=== PATIENT | male | born 1945 | race Hispanic/Latino ===

== ENCOUNTER → 2021-06-30 | Outpatient (CLI) | payer OTHER, MEDICARE ==
[~2021-06-30] MED LIST: AEC81 PO; CLOP75TA32 PO; GLYB1TAB30 PO; IOHEXOL-350 75 ML VIAL IV ONE; MECL-226 PO; METO-391 PO; NAPR-1023 PO; OMEP20CA12 PO; ROSU40 PO; VALS40TA4 PO
== END | disposition home or self-care (01) ==
LOC: RAH 08:51 → DAH 08:51
PROVIDERS: ATTEND Internal Medicine Cardiovascular Disease
DX: I65.23 Occlusion and stenosis of bilateral carotid arteries (principal)
CPT/HCPCS: 70498; Q9967

== ENCOUNTER 2021-07-23 12:30 | Inpatient (IN) | payer OTHER, MEDICARE ==
[~2021-07-23] VITALS: Ht 162.6 cm; Wt 60.5 kg
[~2021-07-23 12:30] MED LIST changes: -IOHEXOL-350 75 ML VIAL IV ONE
[2021-08-26 09:50] LABS: BASOPHILS % (AUTO) 0.8 % (0.0-5.0); EOSINOPHILS % (AUTO) 2.1 % (0.0-8.0); HEMATOCRIT 36.7 % (42-54); LYMPHOCYTES % (AUTO) 22.4 % (21.0-51.0); MEAN CORPUSCULAR HEMOGLOBIN 30.3 pg (27.0-33.0); MEAN CORPUSCULAR HGB CONC 31.3 g/dL (32.0-36.0); MEAN CORPUSCULAR VOLUME 96.6 fL (79-99); MONOCYTES % (AUTO) 4.9 % (3.0-13.0); NEUTROPHILS % (AUTO) 69.3 % (40.0-77.0); PLATELET COUNT (AUTO) 169 K/uL (130-400); RED CELL DISTRIBUTION WIDTH 15.2 % (11.0-15.5); WHITE BLOOD COUNT (AUTO) 7.9 K/uL (4.8-10.8)
[2021-08-26 09:55] LABS: APPEARANCE,URINE Clear (CLEAR); BILIRUBIN,URINE Negative (NEGATIVE); COLOR,URINE Yellow (YELLOW); GLUCOSE, URINE (UA) Negative (NEGATIVE); KETONES,URINE Negative (NEGATIVE); LEUKOCYTE ESTERASE ,URINE Negative (NEGATIVE); NITRATE,URINE Negative (NEGATIVE); OCCULT BLOOD,URINE Negative (NEGATIVE); PROTEIN,URINE Negative (NEGATIVE)
[2021-08-26 09:57] LABS: CREATININE 2.6 mg/dL (0.5-1.5); POTASSIUM 4.7 mmol/L (3.5-5.1)
[2021-08-26 09:59] LABS: INR 1.23 (0.85-1.15); PROTHROMBIN TIME 13.2 SEC (9.6-11.6)
[2021-08-26 10:00] LABS: PARTIAL THROMBOPLASTIN TIME 32.3 SEC (26.3-35.5)
[2021-08-27 13:42] VITALS: BP 106/53
[2021-08-30] VITALS (54 sets, daily range): BP systolic 74–288; BP diastolic 34–298
[2021-08-30] MEDS ORDERED: 0.9%NACL 1000ML 1,000 ML IV ONE (05:48)
[2021-08-30] MEDS ORDERED: TAMS-1 PO (06:28)
[2021-08-30] MEDS ORDERED: ALLO300T2 PO (06:28)
[2021-08-30] MEDS ORDERED: ACET650T24 PO (06:28)
[2021-08-30] MEDS ORDERED: FURO40TA5 PO (06:28)
[2021-08-30] MEDS ORDERED: GABA-529 PO (06:28)
[2021-08-30] MEDS ORDERED: FOLI1TAB61 PO (06:28)
[2021-08-30] MEDS ORDERED: ISOS30TA92 PO (06:28)
[2021-08-30] MEDS ORDERED: FERR325T22 PO (06:28)
[2021-08-30] MEDS ORDERED: PANT20TA18 PO (06:28)
[2021-08-30] MEDS ORDERED: GLIP1TAB6 PO (06:28)
[2021-08-30] MEDS ORDERED: TELM40TA8 PO (06:29)
[2021-08-30] MEDS ORDERED: LIDOCAINE PF 100MG/5ML (2%) SYRINGE 5ML ONE ×2 (06:44→10:00)
[2021-08-30] MEDS ORDERED: PROPOFOL 10 MG/ML 20ML VIAL IV ONE ×2 (06:44→10:00)
[2021-08-30] MEDS ORDERED: FENTANYL CITRATE PF 50 MCG/1 ML 2ML VIAL ONE ×4 (06:44→10:01)
[2021-08-30] MEDS ORDERED: MIDAZOLAM HCL 1 MG/ML 2ML VIAL ONE ×2 (06:44→10:09)
[2021-08-30] MEDS ORDERED: SODIUM BICARB 50MEQ 50ML VIAL 50 ML ONE (09:52)
[2021-08-30] MEDS ORDERED: CEFAZOLIN SODIUM 1 GM VIAL ONE ×2 (09:52→10:09)
[2021-08-30] MEDS ORDERED: NITROGLYCERIN 50MG VIAL ONE (09:53)
[2021-08-30] MEDS ORDERED: IOHEXOL 350 MG/ML 100ML INFUS..BTL IV ONE (09:53)
[2021-08-30] MEDS ORDERED: LIDOCAINE HCL 400MG/20ML VIAL ONE (09:53)
[2021-08-30] MEDS ORDERED: ROCURONIUM 10MG/1ML SYR 10 MG/ML ML ONE (10:00)
[2021-08-30] MEDS ORDERED: ONDANSETRON 4MG INJ ONE (10:00)
[2021-08-30] MEDS ORDERED: NOREPINEPHRINE BITARTRATE 1 MG/1 ML ML IV ONE (10:19)
[2021-08-30] MEDS ORDERED: HEPARIN 10,000 UNIT/10ML (1,000 UNIT/ML) VIAL ONE (10:48)
[2021-08-30] MEDS ORDERED: ATROPINE 1MG SYG IVP ONE (11:10)
[2021-08-30] MEDS ORDERED: ROCURONIUM BROMIDE 10MG/1ML 5ML VL ONE (11:13)
[2021-08-30] MEDS ORDERED: DEXTROSE 50%-WATER 50 ML DISP.SYRIN IV PRN (12:00)
[2021-08-30] MEDS ORDERED: PHARMACY COMMUNICATION MISC SCH (12:00)
[2021-08-30] MEDS ORDERED: 0.9%NACL 1000ML 1,000 ML IV SCH (12:00)
[2021-08-30] MEDS ORDERED: ACETAMINOPHEN 650 MG PO PRN (12:00)
[2021-08-30] MEDS ORDERED: NEOSTIGMINE 5MG/5ML SYR IV ONE (12:03)
[2021-08-30] MEDS ORDERED: GLYCOPYRROLATE 0.2 MG/ML 5 ML VIAL ONE (12:04)
[2021-08-30] MEDS ORDERED: NOREPINEPHRIN 4MG/NS 250ML 250 ML IV SCH (13:00)
[2021-08-30] MEDS ORDERED: NITROGLYCERIN 50MG/D5W 250ML 1 BOT IV PRN (13:00)
[2021-08-30] MEDS: INSULIN HUMULIN R 100 UNIT/ML 3ML SQ SCH ×2 (16:30→20:52)
[2021-08-30] MEDS: ATORVASTATIN 40 MG TABLET PO SCH (20:40)
[2021-08-30] MEDS: METFORMIN PO SCH (21:28)
[2021-08-30] MEDS: GLIPIZIDE PO SCH (21:28)
[2021-08-31] VITALS (91 sets, daily range): BP systolic 55–134; BP diastolic 26–64
[2021-08-31 03:45] LABS: HEMATOCRIT 30.3 % (42-54); MEAN CORPUSCULAR HEMOGLOBIN 30.2 pg (27.0-33.0); MEAN CORPUSCULAR HGB CONC 31.7 g/dL (32.0-36.0); MEAN CORPUSCULAR VOLUME 95.3 fL (79-99); RED BLOOD CELL COUNT(AUTO) 3.18 MIL/uL (4.50-6.20); RED CELL DISTRIBUTION WIDTH 15.1 % (11.0-15.5); WHITE BLOOD COUNT (AUTO) 9.2 K/uL (4.8-10.8)
[2021-08-31 03:52] LABS: CREATININE 2.3 mg/dL (0.5-1.5); POTASSIUM 3.7 mmol/L (3.5-5.1)
[2021-08-31] MEDS: CEFAZOLIN SODIUM 1 GM VIAL IVP SCH (05:14)
[2021-08-31] MEDS: INSULIN HUMULIN R 100 UNIT/ML 3ML SQ SCH ×4 (05:45→20:24)
[2021-08-31] MEDS: Vitamin B Complex/Vit C/Folic Acid PO SCH (08:11)
[2021-08-31] MEDS: PANTOPRAZOLE 40 MG TAB DR PO SCH (08:11)
[2021-08-31] MEDS: FERROUS SULFATE 325 MG TABLET.DR PO SCH (08:11)
[2021-08-31] MEDS: ASPIRIN 81 MG EC TAB PO SCH (08:11)
[2021-08-31] MEDS: CLOPIDOGREL 75MG TAB PO SCH (08:12)
[2021-08-31] MEDS: FUROSEMIDE 40 MG TABLET PO SCH (08:12)
[2021-08-31] MEDS: GABAPENTIN 100 MG CAPSULE PO SCH (08:12)
[2021-08-31] MEDS: ISOSORBIDE MONO 30MG SR TAB PO SCH (08:17)
[2021-08-31] MEDS: LOSARTAN 50 MG TABLET PO SCH (08:17)
[2021-08-31] MEDS: TAMSULOSIN HCL 0.4 MG CAP.ER.24H PO SCH (08:17)
[2021-08-31] MEDS: GLIPIZIDE PO SCH ×2 (08:21→20:22)
[2021-08-31] MEDS: METFORMIN PO SCH ×2 (08:21→20:22)
[2021-08-31] MEDS: ALLOPURINOL 300 MG TABLET PO SCH (11:50)
[2021-08-31] MEDS: ATORVASTATIN 40 MG TABLET PO SCH (20:21)
[2021-09-01] VITALS (34 sets, daily range): BP systolic 90–115; BP diastolic 33–78
[2021-09-01 04:16] LABS: HEMATOCRIT 28.6 % (42-54); MEAN CORPUSCULAR HEMOGLOBIN 30.8 pg (27.0-33.0); MEAN CORPUSCULAR HGB CONC 32.2 g/dL (32.0-36.0); MEAN CORPUSCULAR VOLUME 95.7 fL (79-99); RED BLOOD CELL COUNT(AUTO) 2.99 MIL/uL (4.50-6.20); RED CELL DISTRIBUTION WIDTH 15.1 % (11.0-15.5); WHITE BLOOD COUNT (AUTO) 7.5 K/uL (4.8-10.8)
[2021-09-01 04:55] LABS: ALBUMIN 2.6 g/dL (3.5-5.0); BILIRUBIN,TOTAL 0.5 mg/dL (0.2-1.0); MAGNESIUM 1.7 mg/dL (1.80-2.40); POTASSIUM 3.7 mmol/L (3.5-5.1); TOTAL PROTEIN, SERUM 5.6 g/dL (6.0-8.3)
[2021-09-01] MEDS: CEFAZOLIN SODIUM 1 GM VIAL IVP SCH (06:03)
[2021-09-01] MEDS: INSULIN HUMULIN R 100 UNIT/ML 3ML SQ SCH (07:16)
[2021-09-01] MEDS: ASPIRIN 81 MG EC TAB PO SCH (08:38)
[2021-09-01] MEDS: ALLOPURINOL 300 MG TABLET PO SCH (08:38)
[2021-09-01] MEDS: GABAPENTIN 100 MG CAPSULE PO SCH (08:39)
[2021-09-01] MEDS: CLOPIDOGREL 75MG TAB PO SCH (08:39)
[2021-09-01] MEDS: PANTOPRAZOLE 40 MG TAB DR PO SCH (08:39)
[2021-09-01] MEDS: FERROUS SULFATE 325 MG TABLET.DR PO SCH (08:39)
[2021-09-01] MEDS: Vitamin B Complex/Vit C/Folic Acid PO SCH (08:39)
[2021-09-01] MEDS: LOSARTAN 50 MG TABLET PO SCH (08:40)
[2021-09-01] MEDS: TAMSULOSIN HCL 0.4 MG CAP.ER.24H PO SCH (08:40)
[2021-09-01] MEDS: GLIPIZIDE PO SCH (08:41)
[2021-09-01] MEDS: METFORMIN PO SCH (08:41)
[2021-09-01] MEDS: FUROSEMIDE 40 MG TABLET PO SCH (08:41)
[2021-09-01] MEDS: ISOSORBIDE MONO 30MG SR TAB PO SCH (08:41)
== END 2021-09-01 15:45 | disposition home or self-care (01) | DRG 35 ==
LOC: EDSTATUS 08-26 09:00 → DAHIP 08-30 05:30 → 2CH 08-30 12:25
PROVIDERS: ADMIT Internal Medicine; ATTEND Internal Medicine
PROC: 037H3DZ Dilation of Right Common Carotid Artery with Intraluminal Device, Percutaneous Approach (ICD-10-PCS; 2021-08-30)
PROC: B3131ZZ Fluoroscopy of Right Common Carotid Artery using Low Osmolar Contrast (ICD-10-PCS; 2021-08-30)
PROC: 037K3DZ Dilation of Right Internal Carotid Artery with Intraluminal Device, Percutaneous Approach (ICD-10-PCS; 2021-08-30)
PROC: 03QH0ZZ Repair Right Common Carotid Artery, Open Approach (ICD-10-PCS; principal; 2021-08-30 10:12)
DX: I65.23 Occlusion and stenosis of bilateral carotid arteries (principal); I50.22 Chronic systolic (congestive) heart failure; I13.0 Hypertensive heart and chronic kidney disease with heart failure and stage 1 through stage 4 chronic kidney disease, or unspecified chronic kidney disease; Z95.1 Presence of aortocoronary bypass graft; I25.10 Atherosclerotic heart disease of native coronary artery without angina pectoris; E78.5 Hyperlipidemia, unspecified; I48.91 Unspecified atrial fibrillation; E11.22 Type 2 diabetes mellitus with diabetic chronic kidney disease; I25.2 Old myocardial infarction; E11.51 Type 2 diabetes mellitus with diabetic peripheral angiopathy without gangrene; K21.9 Gastro-esophageal reflux disease without esophagitis; J44.9 Chronic obstructive pulmonary disease, unspecified; E03.9 Hypothyroidism, unspecified; E11.40 Type 2 diabetes mellitus with diabetic neuropathy, unspecified; M10.9 Gout, unspecified; Z95.810 Presence of automatic (implantable) cardiac defibrillator; I95.9 Hypotension, unspecified
CPT/HCPCS: 36415; 37215; 71045; 80048; 80053; 81003; 82948; 83735; 85025; 85027; 85347; 85610; 85730; 86850; 86900; 86901; 86923; 93005; A4606; C1725; C1769; C1894; G0378; J0461; J0690; J1644; J2001; J2250; J2405; J2704; J2710; J3010; J3490; J7030; J7070; Q9967

== ENCOUNTER → 2022-03-19 | Outpatient (CLI) | payer OTHER, MEDICARE ==
[~2022-03-19] MED LIST changes: +ACET-3204 PO; +ALLO300T2 PO; +FERR325T22 PO; +FOLI1TAB61 PO; +GABA-529 PO; +GLIP1TAB6 PO; -GLYB1TAB30 PO; -MECL-226 PO; -METO-391 PO; -NAPR-1023 PO; -OMEP20CA12 PO; -VALS40TA4 PO
== END | disposition home or self-care (01) ==
LOC: SHCH 08:22
PROVIDERS: ATTEND Internal Medicine Cardiovascular Disease
DX: I65.23 Occlusion and stenosis of bilateral carotid arteries (principal); Z95.828 Presence of other vascular implants and grafts
CPT/HCPCS: 93880

== ENCOUNTER → 2022-10-01 | Outpatient (CLI) | payer OTHER, MEDICARE | END | disposition home or self-care (01) | LOC: SHCH 07:50 | PROVIDERS: ATTEND Internal Medicine Cardiovascular Disease | DX: I65.23 Occlusion and stenosis of bilateral carotid arteries (principal); Z95.828 Presence of other vascular implants and grafts | CPT/HCPCS: 93880 ==

== ENCOUNTER → 2023-08-18 | Outpatient (CLI) | payer OTHER, MEDICARE ==
[2023-08-18 12:18] LABS: BASOPHILS # (AUTO) 0.06 K/uL (0.00-0.20); BASOPHILS % (AUTO) 0.7 % (0.0-5.0); EOSINOPHILS # (AUTO) 0.17 K/uL (0.00-0.70); HEMATOCRIT 38.2 % (42-54); IMMATURE GRANULOCYTE ABSOLUTE 0.04 K/uL (0-1); LYMPHOCYTES # (AUTO) 1.3 K/uL (1.0-4.8); LYMPHOCYTES % (AUTO) 15.3 % (21.0-51.0); MEAN CORPUSCULAR HEMOGLOBIN 27.9 pg (27.0-33.0); MEAN CORPUSCULAR HGB CONC 31.2 g/dL (32.0-36.0); MEAN CORPUSCULAR VOLUME 89.7 fL (79-99); MONOCYTES # (AUTO) 0.6 K/uL (0.1-1.0); MONOCYTES % (AUTO) 6.4 % (3.0-13.0); NEUTROPHILS # (AUTO) 6.4 K/uL (1.8-7.7); NEUTROPHILS % (AUTO) 75.1 % (40.0-77.0); PLATELET COUNT (AUTO) 273 K/uL (130-400); RED BLOOD CELL COUNT(AUTO) 4.26 MIL/uL (4.50-6.20); RED CELL DISTRIBUTION WIDTH 15.8 % (11.0-15.5); WHITE BLOOD COUNT (AUTO) 8.6 K/uL (4.8-10.8)
[2023-08-18 12:35] LABS: CREATININE 2.9 mg/dL (0.5-1.3); MAGNESIUM 1.9 mg/dL (1.80-2.40); POTASSIUM 4.9 mmol/L (3.5-5.1)
== END | disposition home or self-care (01) ==
LOC: LAB 10:49
PROVIDERS: ATTEND Internal Medicine Cardiovascular Disease
DX: I10 Essential (primary) hypertension (principal)
CPT/HCPCS: 36415; 80048; 83735; 85025

== ENCOUNTER → 2023-12-19 | Outpatient (CLI) | payer OTHER, MEDICARE ==
[2023-12-19 16:25] LABS: CREATININE 3.1 mg/dL (0.5-1.3); MAGNESIUM 1.9 mg/dL (1.80-2.40); POTASSIUM 4.2 mmol/L (3.5-5.1)
== END | disposition home or self-care (01) ==
LOC: LAB 13:20
PROVIDERS: ATTEND Internal Medicine Cardiovascular Disease
DX: I10 Essential (primary) hypertension (principal); I25.110 Atherosclerotic heart disease of native coronary artery with unstable angina pectoris
CPT/HCPCS: 36415; 80048; 83735